=== PATIENT | female | born 1980 | race Caucasian/White ===

== ENCOUNTER → 2020-12-28 | Outpatient (CLI) | payer OTHER ==
[~2020-12-28] MED LIST: IBUPROFEN 800800 M1 PO; KEFLEX500 MG PO; ZPAK PO
== END ==
LOC: M.ULTRA 08:41
PROVIDERS: ATTEND Family Medicine
DX: N83.202 Unspecified ovarian cyst, left side (principal); N94.5 Secondary dysmenorrhea; N92.0 Excessive and frequent menstruation with regular cycle